=== PATIENT | female | born 2000 | race Caucasian/White ===

== ENCOUNTER 2022-08-31 02:52 | Day surgery (SDC) | payer SELFPAY ==
[2022-08-31 03:08] VITALS: BMI 29.8
[2022-08-31] MEDS ORDERED: Ondansetron ODT 4 MG TAB PO SCH (03:45)
[2022-08-31] MEDS ORDERED: Acetaminophen 500 MG TAB PO SCH (03:45)
[2022-08-31] MEDS ORDERED: hydrALAZINE 20 MG/ML VIAL SLOW IVP PRN (03:46)
== END 2022-08-31 05:06 | disposition home or self-care (01) ==
LOC: CSHLD/OP 02:52
PROVIDERS: ATTEND Obstetrics & Gynecology
DX: O99.613 Diseases of the digestive system complicating pregnancy, third trimester (principal); K52.9 Noninfective gastroenteritis and colitis, unspecified; K21.9 Gastro-esophageal reflux disease without esophagitis; O47.03 False labor before 37 completed weeks of gestation, third trimester; Z3A.33 33 weeks gestation of pregnancy; Z79.899 Other long term (current) drug therapy
CPT/HCPCS: 99283; Q0162

== ENCOUNTER 2022-10-08 16:10 | Inpatient (IN) | payer OTHER ==
[~2022-10-08 16:10] MED LIST: Bupivacaine 0.25% HCL 30 ML VIAL ONE; Bupivacaine PF 0.5% 30 ML VIAL ONE; Bupivacaine/Epinephrine 0.25% 30 ML VIAL ONE; Lidocaine 2% MPF 10 ML AMP (For Epidural Use) ONE; ePHEDrine Sulfate 50 MG/10 ML VIAL ONE
[2022-10-08] MEDS ORDERED: Ondansetron PF 4 MG/2 ML Vial IVP PRN (16:26)
[2022-10-08] MEDS ORDERED: Promethazine HCl 25 MG/ML VIAL IM PRN (16:26)
[2022-10-08] MEDS ORDERED: Lidocaine 1% (PF) 30 ML VIAL SC PRN ×2 (16:26→18:08)
[2022-10-08] MEDS ORDERED: hydrALAZINE 20 MG/ML VIAL SLOW IVP PRN (16:26)
[2022-10-08] MEDS ORDERED: NS w/ Oxytocin 30 units 500 ML IV SCH ×3 (16:30→18:15)
[2022-10-08 16:35] VITALS: BMI 33.6
[2022-10-08 17:40] LABS: Hemoglobin 11.1 g/dL (12.0-15.5); Mean Corpuscular Hemoglobin 28.5 pg (27.0-33.0); Mean Corpuscular Volume 83.6 fl (81.6-98.3); Mean Platelet Volume 12.1 fl (7.4-10.4); Platelet Count 276 10x3/uL (150-450); RBC Distribution Width 13.2 % (11.5-14.5); White Blood Cell (WBC) Count 10.9 10x3/uL (3.5-10.5)
[2022-10-08] MEDS ORDERED: Carboprost 250 MCG/ML AMP IM PRN (18:08)
[2022-10-08] MEDS ORDERED: Methylergonovine 0.2 MG/ML VIAL IM PRN (18:08)
[2022-10-08] MEDS ORDERED: Misoprostol 200 MCG TAB PR PRN (18:08)
[2022-10-08] MEDS ORDERED: Ibuprofen 800 MG TAB PO PRN (18:08)
[2022-10-08 18:15] LABS: Syphilis Antibody Nonreactive (Nonreactive); Syphilis Antibody Index 0.05 S/CO (<1.00 Non-Reactive)
[2022-10-08 18:16] LABS: HBSAg Index 0.19 S/CO (0-0.99); Hep B Surf Ag Non-Reactive S/CO (NonReactive)
[2022-10-08 18:17] LABS: SARS-CoV-2 NAA Rapid Test Not Detected (NotDetected)
[2022-10-08] MEDS: Misoprostol 100 MCG TAB VAG SCH (18:26)
[2022-10-08] MEDS ORDERED: Lactated Ringer's 1,000 ML IV SCH (19:30)
[2022-10-08] MEDS ORDERED: Fentanyl 2 mcg/Bup 0.1% Cadd 100 ML ONE (22:35)
[2022-10-09] MEDS ORDERED: ePHEDrine Sulfate 50 MG/10 ML VIAL SLOW IVP PRN (00:31)
[2022-10-09] MEDS ORDERED: Promethazine HCl 25 MG/ML VIAL IM PRN (00:31)
[2022-10-09] MEDS ORDERED: Acetaminophen 325 MG TAB PO PRN (00:31)
[2022-10-09] MEDS ORDERED: Moisturizing Cream (Eucerin) 113 GM JAR TOP PRN (00:31)
[2022-10-09] MEDS ORDERED: diphenhydrAMINE 50 MG/ML VIAL IVP PRN (00:31)
[2022-10-09] MEDS ORDERED: Ondansetron PF 4 MG/2 ML Vial IVP PRN ×2 (00:31→15:21)
[2022-10-09] MEDS ORDERED: Naloxone HCl 0.4 mg/ml Vial IVP PRN ×2 (00:31)
[2022-10-09] MEDS ORDERED: Lactated Ringer's 500 ML IV PRN (00:31)
[2022-10-09] MEDS ORDERED: Communication Order-Pharmacy FS SCH (00:45)
[2022-10-09] MEDS ORDERED: Fentanyl 2 mcg/Bupivacaine 0.1% Cassette 100 ML EPIDURAL SCH (00:45)
[2022-10-09] MEDS ORDERED: diphenhydrAMINE 25 MG CAP PO PRN (15:21)
[2022-10-09] MEDS ORDERED: Boostrix 0.5 ML (Tdap) VIAL (>/=7 yrs of age) IM ONE (15:21)
[2022-10-09] MEDS ORDERED: Lanolin Ointment 7 GM TUBE TOP PRN (15:21)
[2022-10-09] MEDS ORDERED: Benzocaine-Menthol 82.5 ML CAN TOP PRN (15:21)
[2022-10-09] MEDS ORDERED: Milk Of Magnesia 30 ML UDCUP PO PRN (15:21)
[2022-10-09] MEDS ORDERED: Preparation H Ointment 28 GM TUBE PR PRN (15:21)
[2022-10-09] MEDS ORDERED: Bisacodyl 10 MG SUPP PR PRN (15:21)
[2022-10-09] MEDS ORDERED: Acetaminophen 500 MG TAB PO PRN (16:37)
[2022-10-09] MEDS: Ibuprofen 800 MG TAB PO PRN (17:04)
[2022-10-09] MEDS: Docusate 100 MG CAP PO SCH (20:52)
[2022-10-10] MEDS: Ibuprofen 800 MG TAB PO PRN (00:29)
[2022-10-10] MEDS: Misoprostol 100 MCG TAB VAG SCH ×2 (07:49→07:50)
[2022-10-10 08:30] LABS: Hemoglobin 9.6 g/dL (12.0-15.5)
[2022-10-10] MEDS: Ibuprofen 800 MG TAB PO SCH ×2 (08:43→16:45)
[2022-10-10] MEDS: Docusate 100 MG CAP PO SCH ×2 (08:43→22:06)
[2022-10-10] MEDS: Lidocaine 5% Patch TD SCH (09:49)
[2022-10-10] MEDS: HYDROcodone/Acetaminophen 5/325 mg Tablet PO PRN ×2 (11:13→22:07)
[2022-10-10] MEDS ORDERED: Transdermal Patch Removal TOP SCH (21:00)
[2022-10-11] MEDS: Ibuprofen 800 MG TAB PO SCH ×2 (00:05→08:55)
[2022-10-11 07:46] VITALS: BP 113/63; TEMP 98.1
[2022-10-11] MEDS ORDERED: Polyethylene Glycol 3350 17 GM Packet PO SCH (08:00)
[2022-10-11] MEDS: Docusate 100 MG CAP PO SCH (08:55)
[2022-10-11] MEDS: Lidocaine 5% Patch TD SCH (08:55)
[2022-10-11] MEDS ORDERED: Acetaminophen 500 MG TAB PO SCH (09:00)
== END 2022-10-11 15:35 | disposition home or self-care (01) | DRG 807 ==
LOC: CSHLD 16:10 → EEVIPCON 16:10 → CSHPED 10-09 15:00
PROVIDERS: ADMIT Family Medicine; ATTEND Family Medicine
PROC: 3E0P7VZ Introduction of Hormone into Female Reproductive, Via Natural or Artificial Opening (ICD-10-PCS; 2022-10-08)
PROC: 10E0XZZ Delivery of Products of Conception, External Approach (ICD-10-PCS; principal; 2022-10-09)
PROC: 0KQM0ZZ Repair Perineum Muscle, Open Approach (ICD-10-PCS; 2022-10-09)
PROC: 10907ZC Drainage of Amniotic Fluid, Therapeutic from Products of Conception, Via Natural or Artificial Opening (ICD-10-PCS; 2022-10-09)
PROC: 10H07YZ Insertion of Other Device into Products of Conception, Via Natural or Artificial Opening (ICD-10-PCS; 2022-10-09)
DX: O36.5930 Maternal care for other known or suspected poor fetal growth, third trimester, not applicable or unspecified (principal); Z37.0 Single live birth; Z3A.38 38 weeks gestation of pregnancy; Z20.822 Contact with and (suspected) exposure to COVID-19; O99.824 Streptococcus B carrier state complicating childbirth; K21.9 Gastro-esophageal reflux disease without esophagitis; O99.62 Diseases of the digestive system complicating childbirth; Z79.899 Other long term (current) drug therapy; J30.2 Other seasonal allergic rhinitis; O99.52 Diseases of the respiratory system complicating childbirth; O76 Abnormality in fetal heart rate and rhythm complicating labor and delivery; O77.0 Labor and delivery complicated by meconium in amniotic fluid; O32.8XX0 Maternal care for other malpresentation of fetus, not applicable or unspecified; O70.1 Second degree perineal laceration during delivery; O71.82 Other specified trauma to perineum and vulva; M54.50 Low back pain, unspecified; O99.893 Other specified diseases and conditions complicating puerperium
CPT/HCPCS: 36415; 51702; 85014; 85018; 85027; 86780; 86850; 86900; 86901; 87340; 88307; J2405; J2590; S0020; U0002

== ENCOUNTER 2022-12-09 14:10 | Emergency (ER) | payer OTHER | END 2022-12-09 16:50 | disposition home or self-care (01) | LOC: CSHERS 14:10 | DX: J06.9 Acute upper respiratory infection, unspecified (principal) | CPT/HCPCS: 99283 ==